=== PATIENT | male | born 1945 | race Caucasian/White ===

== ENCOUNTER → 2016-08-25 | Outpatient (CLI) | payer MEDICARE ==
[~2016-08-25] MED LIST: ASCO-262 PO; ASPI-983 PO; ATOR40TA70 PO; CANA100T PO; CARV12.53 PO; CLOP75TA28 PO; CLOP75TA69 PO; CRV25T PO; CYAN500T2 PO; FENO160T12 PO; FURO-125 PO; INSU100V16 SQ; INSU100V5 SQ; LISI-552 PO; LISI10TA2 PO; LISI40TA PO; MULT-593 PO; NF-ESOM40C PO; OMEG-160 PO; POTA10TA10 PO; RANI150T15 PO; SIMV40TA4 PO
--- OUTSIDE RECORDS SUMMARY | 2016-08-25 13:32 | XMS REPORT | Continuity of Care Document ---
Author Author [facility] Organization [facility] Address Unknown Phone Unavailable Allergies Active Description Code Type Severity Reaction Onset Reported/Identified Relationship to Patient Clinical Status Yes No Known Drug Allergies [id number] Drug Allergy Unknown N/ A 02/07/2015 Medications Problems Date Dx Coded Attending Type Code Diagnosis Diagnosed By 02/08/2015 ADRIANO QUINN MD Ot 250.00 02/08/2015 ADRIANO QUINN MD Ot 401.9 02/08/2015 ADRIANO QUINN MD Ot 428.0 02/08/2015 ADRIANO QUINN MD Ot 443.9 02/08/2015 ADRIANO QUINN MD Ot 496 02/08/2015 ADRIANO QUINN MD Ot 786.50 03/03/2015 ADRIANO QUINN MD Ot 250.00 DIAB [place]ILE[place] WO COMPL, TYPE II OR UNSPEC TY 03/03/2015 ADRIANO QUINN MD Ot 305.1 TOBACCO USE DISORDER 03/03/2015 ADRIANO QUINN MD Ot 401.9 HYPERTENSION NOS 03/03/2015 ADRIANO QUINN MD Ot 414.01 CORONARY ATHEROSCLEROSIS OF [place] CORON 03/03/2015 ADRIANO QUINN MD Ot 428.0 CONGESTIVE HEART FAILURE NOS 03/03/2015 ADRIANO QUINN MD Ot 440.29 OTH ATHEROSCLEROSIS [place] ARTERIES EXTR 03/03/2015 ADRIANO QUINN MD Ot 496 CHR AIRWAY OBSTRUCT NEC 03/03/2015 ADRIANO QUINN MD Ot 786.50 CHEST PAIN NOS 03/03/2015 ADRIANO QUINN MD Ot V45.89 POSTSURGICAL STATES NEC 03/03/2015 ADRIANO QUINN MD Ot V58.67 LONG-TERM (CURRENT) USE OF INSULIN 03/03/2015 ADRIANO QUINN MD Ot V58.69 OTH MED,LT,CURRENT USE 03/12/2015 ADRIANO QUINN MD Ot 250.00 03/12/2015 CHEYENNE QUINTEROS, ADRIANO Crews Ot 401.9 03/12/2015 CHEYENNE QUINTEROS, ADRIANO G Ot 428.0 03/12/2015 CHEYENNE QUINTEROS, ADRIANO Crews Ot 443.9 03/12/2015 CHEYENNE QUINTEROS, ADRIANO G Ot 496 03/12/2015 CHEYENNE QUINTEROS ADRIANO G Ot 786.50 04/17/2015 NWAGWU, ISIDORE O DETECTIVE HOMICIDE SQUAD Ot 250.00 04/17/2015 NWAGWU, ISIDORE O DETECTIVE HOMICIDE SQUAD Ot 305.1 04/17/2015 NWAGWU, ISIDORE O DETECTIVE HOMICIDE SQUAD Ot 401.9 04/17/2015 NWAGWU, ISIDORE O DETECTIVE HOMICIDE SQUAD Ot 428.0 04/17/2015 NWAGWU, ISIDORE O DETECTIVE HOMICIDE SQUAD Ot 443.9 04/17/2015 NWAGWU, ISIDORE O DETECTIVE HOMICIDE SQUAD Ot 496 04/22/2015 CHEYENNE QUINTEROS, ADRIANO Mars Ot 250.00 04/22/2015 CHEYENNE QUINTEROS, ADRIANO Crews Ot 401.9 04/22/2015 CHEYENNE QUINTEROS, ADRIANO Mars Ot 428.0 04/22/2015 CHEYENNE QUINTEROS, ADRIANO Mars Ot 443.9 04/22/2015 CHEYENNE QUINTEROS, ADRIANO G Ot 496 04/22/2015 CHEYENNE QUINTEROS, ADRIANO G Ot 786.50 04/22/2015 NWAGWU, ISIDORE O DETECTIVE HOMICIDE SQUAD Ot 250.00 04/22/2015 NWAGWU, ISIDORE O DETECTIVE HOMICIDE SQUAD Ot 305.1 04/22/2015 NWAGWU, ISIDORE O DETECTIVE HOMICIDE SQUAD Ot 401.9 04/22/2015 NWAGWU, ISIDORE O DETECTIVE HOMICIDE SQUAD Ot 428.0 04/22/2015 NWAGWU, ISIDORE O DETECTIVE HOMICIDE SQUAD Ot 443.9 04/22/2015 NWAGWU, ISIDORE O DETECTIVE HOMICIDE SQUAD Ot 496 04/23/2015 NWAGWU, ISIDORE O DETECTIVE HOMICIDE SQUAD Ot E11.9 TYPE 2 DIABETES MELLITUS WITHOUT COMPLIC 04/23/2015 NWAGWU, ISIDORE O DETECTIVE HOMICIDE SQUAD Ot F17.200 NICOTINE DEPENDENCE, UNSPECIFIED, UNCOMP 04/23/2015 NWAGWU, ISIDORE O DETECTIVE HOMICIDE SQUAD Ot I10 ESSENTIAL (PRIMARY) HYPERTENSION 04/23/2015 NWPABLOWGreer, ISIDORE O DETECTIVE HOMICIDE SQUAD Ot I25.10 ATHSCL HEART DISEASE OF [place] CORONARY 04/23/2015 NWPABLOWGreer, ISIDORE O DETECTIVE HOMICIDE SQUAD Ot I25.2 OLD MYOCARDIAL INFARCTION 04/23/2015 NWPABLOWGreer, ISIDORE O DETECTIVE HOMICIDE SQUAD Ot 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 04/23/2015 NWPABLOWGreer, ISIDORE O DETECTIVE HOMICIDE SQUAD Ot J44.9 CHRONIC OBSTRUCTIVE PULMONARY DISEASE, U 04/23/2015 NWAMELIA, ISIDORE O DETECTIVE HOMICIDE SQUAD Ot Z79.4 HALF-WAY (CURRENT) USE OF INSULIN 08/13/2016 ADRIANO QUINN MD Ot 250.00 DIAB HAILEE WO COMPL, TYPE II OR UNSPEC TY 08/13/2016 ADRIANO QUINN MD Ot 401.9 HYPERTENSION NOS 08/13/2016 ADRIANO QUINN MD Ot 428.0 CONGESTIVE HEART FAILURE NOS 08/13/2016 ADRIANO QUINN MD Ot 443.9 PERIPH VASCULAR DIS NOS 08/13/2016 ADRIANO QUINN MD Ot 496 CHR AIRWAY OBSTRUCT NEC 08/13/2016 ADRIANO QUINN MD Ot 786.50 CHEST PAIN NOS 08/13/2016 NWAMELIA, ISIDORE O DETECTIVE HOMICIDE SQUAD Ot 250.00 DIAB HAILEE WO COMPL, TYPE II OR UNSPEC TY 08/13/2016 NWAMELIA, ISIDORE O DETECTIVE HOMICIDE SQUAD Ot 305.1 TOBACCO USE DISORDER 08/13/2016 NWAMELIA, ISIDORE O DETECTIVE HOMICIDE SQUAD Ot 401.9 HYPERTENSION NOS 08/13/2016 NWPABLOWGreer, ISIDORE O DETECTIVE HOMICIDE SQUAD Ot 428.0 CONGESTIVE HEART FAILURE NOS 08/13/2016 NWPABLOWGreer, ISIDORE O DETECTIVE HOMICIDE SQUAD Ot 443.9 PERIPH VASCULAR DIS NOS 08/13/2016 MONICA, ISIDORE O DETECTIVE HOMICIDE SQUAD Ot 496 CHR AIRWAY OBSTRUCT NEC Procedures Results Encounters ACCT No. Visit Date/Time Discharge Status Pt. Type Provider Facility Loc./Unit Complaint [id number] 04/22/2015 07:12:00 2014 10:44:00 DIS Outpatient MONICA ISIDORE O DETECTIVE HOMICIDE SQUAD [facility] PAD,HTN, DIABETES [id number] 03/28/2015 11:07:00 2014 23:59:59 CLS Outpatient BRAD ANDERSON APRN [facility] PAD, BILATERAL CLAUTICATION OF LOWER LIMB [id number] 03/01/2015 09:52:00 2014 18:12:00 DIS Outpatient ADRIANO QUINN MD [facility] CHF,HTN,PAD [id number] 02/07/2015 09:59:00 2014 23:59:59 CLS Outpatient ADRIANO QUINN MD [facility] CP CHF COPD HTN [id number] 08/26/2016 11:30:00 PEN Preadmit LEIDY ARMIJO MD [facility] COPD,CHEST PAIN SYNDROME,HTN [id number] 08/25/2016 11:00:00 PEN Preadmit LEIDY ARMIJO MD [facility] COPD,CHEST PAIN SYNDROME,HTN
--- NOTE | 2016-08-26 10:12 | ECHOCARDIOGRAPHY REPORT ---
PROCEDURE PHYSICIAN: LEIDY ARMIJO DATE OF PROCEDURE: 08/25/2016 TWO DIMENSIONAL ECHOCARDIOGRAM REPORT PRIMARY PHYSICIAN: OTHER PHYSICIAN: REFERRING PHYSICIAN: Dr. Daisy Marcelo ORDERING PHYSICIAN: INDICATION FOR THE PROCEDURE: Chest pain MEASUREMENTS DERIVED VALUES LV DIAMETER (LAX) NORMALS NORMALS Diastolic 4.6 (3.6-5.2) Eject. Fract. 60% (60%+/-6%) Systolic (2.3-3.9) Diastolic Vol. % Shortening (0.22-0.42) Systolic Vol. Aortic Root IVS THICKNESS Diastolic 1.3 (0.6-1.1) LVPW THICKNESS Diastolic 1.3 (0.6-1.1) LA DIAMETER Systolic 4.2 (2.1-3.7) FINDINGS: 1. Technical quality is good. 2. The left ventricle is normal in size with mild left ventricular hypertrophy noted diffusely. Systolic function appeared to be normal. Estimated ejection fraction 60%. Diastolic dysfunction is suggested by Doppler. 3. The left atrium is mildly dilated. No clot or thrombus were seen within the left atrium. 4. The right atrium and right ventricle are normal in size. No clot or thrombus were seen within the right side. 5. Mitral valve is mildly calcified with moderate mitral regurgitation noted by color Doppler flow. No mitral valve prolapse. No mitral valve stenosis. 6. Aortic valve is trileaflet, no significant aortic stenosis or regurgitation was seen. 7. Tricuspid valve is normal in morphology with mild tricuspid regurgitation noted by color Doppler flow. Doppler across tricuspid valve estimated pulmonary artery pressure of 16+ right atrial pressure. 8. Pulmonic valve is functioning normally. 9. No pericardial effusion. CONCLUSION: 1. Mild left ventricular hypertrophy noted diffusely with normal systolic function. Estimated ejection fraction 60%. Diastolic dysfunction is suggested by Doppler. 2. Mildly dilated left atrium. 3. Moderate mitral regurgitation. Mild tricuspid regurgitation. 4. Estimated pulmonary artery pressure of 25 mmHg. Job ID: [id number] Dictated Date: 08/26/2016 08:24:09 Esthetician/Skin Therapist Date: 08/26/2016 10:07:40 / paddy
== END ==
LOC: CARD 11:17
PROVIDERS: ATTEND Internal Medicine Cardiovascular Disease
DX: I25.10 Atherosclerotic heart disease of native coronary artery without angina pectoris (principal); J44.9 Chronic obstructive pulmonary disease, unspecified; R07.9 Chest pain, unspecified; I73.9 Peripheral vascular disease, unspecified; I11.0 Hypertensive heart disease with heart failure; I51.7 Cardiomegaly; I50.9 Heart failure, unspecified
CPT/HCPCS: 93306

== ENCOUNTER → 2016-08-26 | Outpatient (CLI) | payer MEDICARE ==
[~2016-08-26] MED LIST changes: +CATHETER FLUSH 10 ML SYR IV PRN; +REGADENOSON 0.4 MG/5 ML SYR (LEXISCAN) IV ONE
--- OUTSIDE RECORDS SUMMARY | 2016-08-26 11:18 | XMS REPORT | Continuity of Care Document ---
Author Author [facility] Organization [facility] Address Unknown Phone Unavailable Allergies Active Description Code Type Severity Reaction Onset Reported/Identified Relationship to Patient Clinical Status Yes No Known Drug Allergies [id number] Drug Allergy Unknown N/ A 02/07/2015 Medications [...] QUINN MD Ot 414.01 CORONARY ATHEROSCLEROSIS OF [place] CORON 03/03/2015 ADRIANO QUINN MD Ot 428.0 CONGESTIVE HEART FAILURE NOS 03/03/2015 ADRIANO QUINN MD Ot 440.29 OTH ATHEROSCLEROSIS [place] ARTERIES EXTR 03/03/2015 ADRIANO UQINN MD Ot 496 CHR AIRWAY OBSTRUCT NEC [...] G Ot 786.50 04/17/2015 NWAGWU, ISIDORE O HUMAN FACTORS ADVISOR LEAD Ot 250.00 04/17/2015 NWAGWU, ISIDORE O HUMAN FACTORS ADVISOR LEAD Ot 305.1 04/17/2015 NWAGWU, ISIDORE O HUMAN FACTORS ADVISOR LEAD Ot 401.9 04/17/2015 NWAGWU, ISIDORE O HUMAN FACTORS ADVISOR LEAD Ot 428.0 04/17/2015 NWAGWU, ISIDORE O HUMAN FACTORS ADVISOR LEAD Ot 443.9 04/17/2015 NWAGWU, ISIDORE O HUMAN FACTORS ADVISOR LEAD Ot 496 04/22/2015 CHEYENNE QUINTEROS, ADRIANO Mars Ot 250.00 04/22/2015 CHEYENNE QUINTEROS, ADRIANO Crews Ot 401.9 04/22/2015 CHEYENNE QUINTEROS, ADRIANO Mars Ot 428.0 04/22/2015 CHEYENNE QUINTEROS, ADRIANO Mars Ot 443.9 04/22/2015 CHEYENNE QUINTEROS, ADRIANO G Ot 496 04/22/2015 CHEYENNE QUINTEROS, ADRIANO G Ot 786.50 04/22/2015 NWAGWU, ISIDORE O HUMAN FACTORS ADVISOR LEAD Ot 250.00 04/22/2015 NWAGWU, ISIDORE O HUMAN FACTORS ADVISOR LEAD Ot 305.1 04/22/2015 NWAGWU, ISIDORE O HUMAN FACTORS ADVISOR LEAD Ot 401.9 04/22/2015 NWAGWU, ISIDORE O HUMAN FACTORS ADVISOR LEAD Ot 428.0 04/22/2015 NWAGWU, ISIDORE O HUMAN FACTORS ADVISOR LEAD Ot 443.9 04/22/2015 NWAGWU, ISIDORE O HUMAN FACTORS ADVISOR LEAD Ot 496 04/23/2015 NWAGWU, ISIDORE O HUMAN FACTORS ADVISOR LEAD Ot E11.9 TYPE 2 DIABETES MELLITUS WITHOUT COMPLIC 04/23/2015 NWAGWU, ISIDORE O HUMAN FACTORS ADVISOR LEAD Ot F17.200 NICOTINE DEPENDENCE, UNSPECIFIED, UNCOMP 04/23/2015 NWAGWU, ISIDORE O HUMAN FACTORS ADVISOR LEAD Ot I10 ESSENTIAL (PRIMARY) HYPERTENSION 04/23/2015 NWPABLOWGreer, ISIDORE O HUMAN FACTORS ADVISOR LEAD Ot I25.10 ATHSCL HEART DISEASE OF [place] CORONARY 04/23/2015 NWPABLOWGreer, ISIDORE O HUMAN FACTORS ADVISOR LEAD Ot I25.2 OLD MYOCARDIAL INFARCTION 04/23/2015 NWPABLOWGreer, ISIDORE O HUMAN FACTORS ADVISOR LEAD Ot 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 04/23/2015 NWPABLOWGreer, ISIDORE O HUMAN FACTORS ADVISOR LEAD Ot J44.9 CHRONIC OBSTRUCTIVE PULMONARY DISEASE, U 04/23/2015 NWAMELIA, ISIDORE O HUMAN FACTORS ADVISOR LEAD Ot Z79.4 SENIOR LIVING (CURRENT) USE OF INSULIN 08/13/2016 ADRIANO QUINN [...] CHEST PAIN NOS 08/13/2016 NWAMELIA, ISIDORE O HUMAN FACTORS ADVISOR LEAD Ot 250.00 DIAB HAILEE WO COMPL, TYPE II OR UNSPEC TY 08/13/2016 NWAMELIA, ISIDORE O HUMAN FACTORS ADVISOR LEAD Ot 305.1 TOBACCO USE DISORDER 08/13/2016 NWAMELIA, ISIDORE O HUMAN FACTORS ADVISOR LEAD Ot 401.9 HYPERTENSION NOS 08/13/2016 NWPABLOWGreer, ISIDORE O HUMAN FACTORS ADVISOR LEAD Ot 428.0 CONGESTIVE HEART FAILURE NOS 08/13/2016 NWPABLOWGreer, ISIDORE O HUMAN FACTORS ADVISOR LEAD Ot 443.9 PERIPH VASCULAR DIS NOS 08/13/2016 MONICA, ISIDORE O HUMAN FACTORS ADVISOR LEAD Ot 496 CHR AIRWAY OBSTRUCT NEC Procedures Results Encounters ACCT No. Visit Date/Time Discharge Status Pt. Type Provider Facility Loc./Unit Complaint [id number] 04/22/2015 07:12:00 2014 10:44:00 DIS Outpatient MONICA ISIDORE O HUMAN FACTORS ADVISOR LEAD [facility] PAD,HTN, DIABETES [id number] 03/28/2015 11:07:00 2014 23:59:59 CLS Outpatient BRAD ANDERSON APRN [facility] PAD, BILATERAL CLAUTICATION OF LOWER LIMB [id number] 03/01/2015 09:52:00 2014 18:12:00 DIS Outpatient ADRIANO QUINN MD [facility] CHF,HTN,PAD [id number] 02/07/2015 09:59:00 2014 23:59:59 CLS Outpatient ADRIANO QUINN MD [facility] CP CHF COPD HTN [id number] 08/26/2016 11:30:00 PEN Preadmit LEIDY ARMIJO MD [facility] COPD,CHEST PAIN SYNDROME,HTN [id number] 08/25/2016 11:00:00 PEN Preadmit LEIDY ARMIJO MD [facility] COPD,CHEST PAIN SYNDROME,HTN
== END ==
LOC: CARD 11:14
PROVIDERS: ATTEND Internal Medicine Cardiovascular Disease
DX: I25.10 Atherosclerotic heart disease of native coronary artery without angina pectoris (principal); I11.0 Hypertensive heart disease with heart failure; I50.9 Heart failure, unspecified; I51.7 Cardiomegaly; I73.9 Peripheral vascular disease, unspecified; R07.9 Chest pain, unspecified; J44.9 Chronic obstructive pulmonary disease, unspecified

== ENCOUNTER → 2016-09-02 | Outpatient (CLI) | payer MEDICARE ==
[~2016-09-02] VITALS: Ht 177.8 cm; Wt 93.9 kg
--- OUTSIDE RECORDS SUMMARY | 2016-09-02 11:21 | XMS REPORT | Continuity of Care Document ---
Author Author [facility] Organization [facility] Address Unknown Phone Unavailable Allergies Active Description Code Type Severity Reaction Onset Reported/Identified Relationship to Patient Clinical Status Yes No Known Drug Allergies [id number] Drug Allergy Unknown N/ A 02/07/2015 Medications [...] QUINN MD Ot 414.01 CORONARY ATHEROSCLEROSIS OF [place] CORON 03/03/2015 ADRIANO QUINN MD Ot 428.0 CONGESTIVE HEART FAILURE NOS 03/03/2015 ADRIANO QUINN MD Ot 440.29 OTH ATHEROSCLEROSIS [place] ARTERIES EXTR 03/03/2015 ADRIANO QUINN MD Ot [...] G Ot 786.50 04/17/2015 NWAGWU, ISIDORE O HAM CURER Ot 250.00 04/17/2015 NWAGWU, ISIDORE O HAM CURER Ot 305.1 04/17/2015 NWAGWU, ISIDORE O HAM CURER Ot 401.9 04/17/2015 NWAGWU, ISIDORE O HAM CURER Ot 428.0 04/17/2015 NWAGWU, ISIDORE O HAM CURER Ot 443.9 04/17/2015 NWAGWU, ISIDORE O HAM CURER Ot 496 04/22/2015 CHEYENNE QUINTEROS, ADRIANO Mars Ot 250.00 04/22/2015 CHEYENNE QUINTEROS, ADRIANO Crews Ot 401.9 04/22/2015 CHEYENNE QUINTEROS, ADRIANO Mars Ot 428.0 04/22/2015 CHEYENNE QUINTEROS, ADRIANO Mars Ot 443.9 04/22/2015 CHEYENNE QUINTEROS, ADRIANO G Ot 496 04/22/2015 CHEYENNE QUINTEROS, ADRIANO G Ot 786.50 04/22/2015 NWAGWU, ISIDORE O HAM CURER Ot 250.00 04/22/2015 NWAGWU, ISIDORE O HAM CURER Ot 305.1 04/22/2015 NWAGWU, ISIDORE O HAM CURER Ot 401.9 04/22/2015 NWAGWU, ISIDORE O HAM CURER Ot 428.0 04/22/2015 NWAGWU, ISIDORE O HAM CURER Ot 443.9 04/22/2015 NWAGWU, ISIDORE O HAM CURER Ot 496 04/23/2015 NWAGWU, ISIDORE O HAM CURER Ot E11.9 TYPE 2 DIABETES MELLITUS WITHOUT COMPLIC 04/23/2015 NWAGWU, ISIDORE O HAM CURER Ot F17.200 NICOTINE DEPENDENCE, UNSPECIFIED, UNCOMP 04/23/2015 NWAGWU, ISIDORE O HAM CURER Ot I10 ESSENTIAL (PRIMARY) HYPERTENSION 04/23/2015 NWAGWU, ISIDORE O HAM CURER Ot I25.10 ATHSCL HEART DISEASE OF [place] CORONARY 04/23/2015 NWAGWU, ISIDORE O HAM CURER Ot I25.2 OLD MYOCARDIAL INFARCTION 04/23/2015 NWAGWU, ISIDORE O HAM CURER Ot 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 04/23/2015 NWAGWU, ISIDORE O HAM CURER Ot J44.9 CHRONIC OBSTRUCTIVE PULMONARY DISEASE, U 04/23/2015 NWAGWU, ISIDORE O HAM CURER Ot Z79.4 SNF (CURRENT) USE OF INSULIN 08/13/2016 ADRIANO QUINN [...] MD Ot 786.50 CHEST PAIN NOS 08/13/2016 NWAGWU, ISIDORE O HAM CURER Ot 250.00 DIAB HAILEE WO COMPL, TYPE II OR UNSPEC TY 08/13/2016 NWAGWU, ISIDORE O HAM CURER Ot 305.1 TOBACCO USE DISORDER 08/13/2016 NWAGWU, ISIDORE O HAM CURER Ot 401.9 HYPERTENSION NOS 08/13/2016 NWAGWU, ISIDORE O HAM CURER Ot 428.0 CONGESTIVE HEART FAILURE NOS 08/13/2016 NWAGWU, ISIDORE O HAM CURER Ot 443.9 PERIPH VASCULAR DIS NOS 08/13/2016 NWAGWU, ISIDORE O HAM CURER Ot 496 CHR AIRWAY OBSTRUCT NEC 08/27/2016 LEIDY ARMIJO MD Ot I11.0 HYPERTENSIVE HEART DISEASE WITH HEART FA 08/27/2016 LEIDY ARMIJO MD Ot I25.10 ATHSCL HEART DISEASE OF [place] CORONARY 08/27/2016 LEIDY ARMIJO MD Ot I50.9 HEART FAILURE, UNSPECIFIED 08/27/2016 LEIDY ARMIJO MD Ot I51.7 CARDIOMEGALY 08/27/2016 LEIDY ARMIJO MD Ot I73.9 PERIPHERAL VASCULAR DISEASE, UNSPECIFIED 08/27/2016 LEIDY ARMIJO MD Ot J44.9 CHRONIC OBSTRUCTIVE PULMONARY DISEASE, U 08/27/2016 LEIDY ARMIJO MD Ot R07.9 CHEST PAIN, UNSPECIFIED 08/27/2016 LEIDY ARMIJO MD Ot I11.0 HYPERTENSIVE HEART DISEASE WITH HEART FA 08/27/2016 LEIDY ARMIJO MD Ot I25.10 ATHSCL HEART DISEASE OF [place] CORONARY 08/27/2016 LEIDY ARMIJO MD Ot I50.9 HEART FAILURE, UNSPECIFIED 08/27/2016 LEIDY ARMIJO MD Ot I51.7 CARDIOMEGALY 08/27/2016 LEIDY ARMIJO MD Ot I73.9 PERIPHERAL VASCULAR DISEASE, UNSPECIFIED 08/27/2016 LEIDY ARMIJO MD Ot J44.9 CHRONIC OBSTRUCTIVE PULMONARY DISEASE, U 08/27/2016 LEIDY ARMIJO MD Ot R07.9 CHEST PAIN, UNSPECIFIED Procedures Results Encounters ACCT No. Visit Date/Time Discharge Status Pt. Type Provider Facility Loc./Unit Complaint [id number] 04/22/2015 07:12:00 2014 10:44:00 DIS Outpatient NWAGWGreer ISIDORE O HAM CURER [facility] CATH PAD,HTN, DIABETES [id number] 03/28/2015 11:07:00 2014 23:59:59 CLS Outpatient NWJAMIE CISNEROSDORE O HAM CURER [facility] RAD PAD, BILATERAL CLAUTICATION OF LOWER LIMB [id number] 03/01/2015 09:52:00 2014 18:12:00 DIS Outpatient ADRIANO QUINN MD [facility] CATH CHF,HTN,PAD [id number] 02/07/2015 09:59:00 2014 23:59:59 CLS Outpatient ADRIANO QUINN MD [facility] CARD CP CHF COPD HTN [id number] 08/26/2016 11:14:00 ACT Outpatient LEIDY ARMIJO MD [facility] CARD COPD,CHEST PAIN SYNDROME,HTN [id number] 08/25/2016 11:17:00 ACT Outpatient ALEKSANDER QUINTEROS, LEIDY Galvin [facility] COPD,CHEST PAIN SYNDROME,HTN
[2016-09-02 13:06] VITALS: BP 181/81
[2016-09-02 13:10] VITALS: BP 176/81
--- NOTE | 2016-09-03 08:29 | STRESS TEST ---
PROCEDURE PHYSICIAN: LEIDY ARMIJO DATE OF PROCEDURE: 09/02/2016 LEXISCAN MYOVIEW STRESS TEST REPORT REFERRING PHYSICIAN: Dr. Daisy Marcelo BASELINE HEART RATE: 62 BASELINE BLOOD PRESSURE: 180/80. BASELINE EKG: Sinus rhythm with no ischemic changes. SUMMARY: The patient was injected with 10.22 mCi of technetium 99 Myoview and the resting images were obtained. Then the patient received 0.4 mg of Lexiscan followed by 29.5 mCi of technetium 99 Myoview. Throughout the test, there were no EKG changes. The resting and stress images were reviewed and compared in the short axis, horizontal long axis, and vertical long axis views. Review of the images showed diaphragmatic attenuation with fixed defect at the inferoapical segment. No significant ischemia was noted. SSS is 2, SDS 1, TID value 1.05. On the gated images, the left ventricle appeared to be prominent with diffuse left ventricular hypokinesia. Calculated ejection fraction 35%. CONCLUSION: 1. The patient tolerated Lexiscan well. 2. Fixed defect at the inferoapical segment with diaphragmatic attenuation. No significant ischemia was noted. 3. Prominent left ventricle with diffuse left ventricular hypokinesia. Calculated ejection fraction 35%. Job ID: [id number] Dictated Date: 09/03/2016 08:00:00 Ring Making Machine Operator Date: 09/03/2016 08:21:03 / salena
== END ==
LOC: CARD 11:17
PROVIDERS: ATTEND Internal Medicine Cardiovascular Disease
DX: I25.10 Atherosclerotic heart disease of native coronary artery without angina pectoris (principal); I11.0 Hypertensive heart disease with heart failure; I50.9 Heart failure, unspecified; I51.7 Cardiomegaly; I73.9 Peripheral vascular disease, unspecified; R07.9 Chest pain, unspecified; J44.9 Chronic obstructive pulmonary disease, unspecified
CPT/HCPCS: 78452; 93017

== ENCOUNTER 2016-09-09 08:54 | Day surgery (SDC) | payer MEDICARE ==
[~2016-09-09] VITALS: Ht 177.8 cm; Wt 93.9 kg
[2016-09-09] VITALS (11 sets, daily range): BP systolic 144–184; BP diastolic 72–91
[~2016-09-09 08:54] MED LIST changes: -CATHETER FLUSH 10 ML SYR IV PRN; -CRV25T PO; -LISI40TA PO; -REGADENOSON 0.4 MG/5 ML SYR (LEXISCAN) IV ONE; -SIMV40TA4 PO
--- OUTSIDE RECORDS SUMMARY | 2016-09-09 08:57 | XMS REPORT | Continuity of Care Document ---
Author Author [facility] Organization [facility] Address Unknown Phone Unavailable Allergies Active Description Code Type Severity Reaction Onset Reported/Identified Relationship to Patient Clinical Status Yes No Known Drug Allergies [id number] Drug Allergy Unknown N/ A 02/07/2015 Medications [...] QUINN MD Ot 414.01 CORONARY ATHEROSCLEROSIS OF [place] CORON 03/03/2015 ADRIANO QUINN MD Ot 428.0 CONGESTIVE HEART FAILURE NOS 03/03/2015 ADRIANO QUINN MD Ot 440.29 OTH ATHEROSCLEROSIS [place] ARTERIES EXTR 03/03/2015 ADRIANO QUINN MD Ot [...] G Ot 786.50 04/17/2015 NWAGWU, ISIDORE O BLUEPRINT ASSEMBLER Ot 250.00 04/17/2015 NWAGWU, ISIDORE O BLUEPRINT ASSEMBLER Ot 305.1 04/17/2015 NWAGWU, ISIDORE O BLUEPRINT ASSEMBLER Ot 401.9 04/17/2015 NWAGWU, ISIDORE O BLUEPRINT ASSEMBLER Ot 428.0 04/17/2015 NWAGWU, ISIDORE O BLUEPRINT ASSEMBLER Ot 443.9 04/17/2015 NWAGWU, ISIDORE O BLUEPRINT ASSEMBLER Ot 496 04/22/2015 CHEYENNE QUINTEROS, ADRIANO Mars Ot 250.00 04/22/2015 CHEYENNE QUINTEROS, ADRIANO Crews Ot 401.9 04/22/2015 CHEYENNE QUINTEROS, ADRIANO Mars Ot 428.0 04/22/2015 CHEYENNE QUINTEROS, ADRIANO Mars Ot 443.9 04/22/2015 CHEYENNE QUINTEROS, ADRIANO G Ot 496 04/22/2015 CHEYENNE QUINTEROS, ADRIANO G Ot 786.50 04/22/2015 NWAGWU, ISIDORE O BLUEPRINT ASSEMBLER Ot 250.00 04/22/2015 NWAGWU, ISIDORE O BLUEPRINT ASSEMBLER Ot 305.1 04/22/2015 NWAGWU, ISIDORE O BLUEPRINT ASSEMBLER Ot 401.9 04/22/2015 NWAGWU, ISIDORE O BLUEPRINT ASSEMBLER Ot 428.0 04/22/2015 NWAGWU, ISIDORE O BLUEPRINT ASSEMBLER Ot 443.9 04/22/2015 NWAGWU, ISIDORE O BLUEPRINT ASSEMBLER Ot 496 04/23/2015 NWAGWU, ISIDORE O BLUEPRINT ASSEMBLER Ot E11.9 TYPE 2 DIABETES MELLITUS WITHOUT COMPLIC 04/23/2015 NWAGWU, ISIDORE O BLUEPRINT ASSEMBLER Ot F17.200 NICOTINE DEPENDENCE, UNSPECIFIED, UNCOMP 04/23/2015 NWAGWU, ISIDORE O BLUEPRINT ASSEMBLER Ot I10 ESSENTIAL (PRIMARY) HYPERTENSION 04/23/2015 NWAGWU, ISIDORE O BLUEPRINT ASSEMBLER Ot I25.10 ATHSCL HEART DISEASE OF [place] CORONARY 04/23/2015 NWAGWU, ISIDORE O BLUEPRINT ASSEMBLER Ot I25.2 OLD MYOCARDIAL INFARCTION 04/23/2015 NWAGWU, ISIDORE O BLUEPRINT ASSEMBLER Ot 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 04/23/2015 NWAGWU, ISIDORE O BLUEPRINT ASSEMBLER Ot J44.9 CHRONIC OBSTRUCTIVE PULMONARY DISEASE, U 04/23/2015 NWAGWU, ISIDORE O BLUEPRINT ASSEMBLER Ot Z79.4 [facility]CI (CURRENT) USE OF INSULIN 08/13/2016 ADRIANO QUINN [...] CHEST PAIN NOS 08/13/2016 NWAGWU, ISIDORE O BLUEPRINT ASSEMBLER Ot 250.00 DIAB HAILEE WO COMPL, TYPE II OR UNSPEC TY 08/13/2016 NWAGWU, ISIDORE O BLUEPRINT ASSEMBLER Ot 305.1 TOBACCO USE DISORDER 08/13/2016 NWAGWU, ISIDORE O BLUEPRINT ASSEMBLER Ot 401.9 HYPERTENSION NOS 08/13/2016 NWAGWU, ISIDORE O BLUEPRINT ASSEMBLER Ot 428.0 CONGESTIVE HEART FAILURE NOS 08/13/2016 NWAGWU, ISIDORE O BLUEPRINT ASSEMBLER Ot 443.9 PERIPH VASCULAR DIS NOS 08/13/2016 NWAGWU, ISIDORE O BLUEPRINT ASSEMBLER Ot 496 CHR AIRWAY OBSTRUCT NEC 08/27/2016 LEIDY ARMIJO MD Ot I11.0 HYPERTENSIVE HEART DISEASE WITH HEART FA 08/27/2016 LEIDY ARMIJO MD Ot I25.10 ATHSCL HEART DISEASE OF [place] CORONARY 08/27/2016 LEIDY ARMIJO MD Ot I50.9 [...] MD Ot I25.10 ATHSCL HEART DISEASE OF [place] CORONARY 08/27/2016 LEIDY ARMIJO MD Ot I50.9 HEART FAILURE, UNSPECIFIED 08/27/2016 LEIDY ARMIJO MD Ot I51.7 CARDIOMEGALY 08/27/2016 LEIDY ARMIJO MD Ot I73.9 PERIPHERAL VASCULAR DISEASE, UNSPECIFIED 08/27/2016 LEIDY ARMIJO MD Ot J44.9 CHRONIC OBSTRUCTIVE PULMONARY DISEASE, U 08/27/2016 LEIDY ARMIJO MD Ot R07.9 CHEST PAIN, UNSPECIFIED Procedures Results Encounters ACCT No. Visit Date/Time Discharge Status Pt. Type Provider Facility Loc./Unit Complaint [id number] 04/22/2015 07:12:00 2014 10:44:00 DIS Outpatient NWAGWGreer ISIDORE O [employer] [facility] CATH PAD,HTN, DIABETES [id number] 03/28/2015 11:07:00 2014 23:59:59 CLS Outpatient NWJAMIE CISNEROSDORE O [employer] [facility] RAD PAD, BILATERAL CLAUTICATION OF LOWER LIMB [id number] 03/01/2015 09:52:00 2014 18:12:00 DIS Outpatient ADRIANO QUINN MD [facility] CATH CHF,HTN,PAD [id number] 02/07/2015 09:59:00 2014 23:59:59 CLS Outpatient ADRIANO QUINN MD [facility] CARD CP CHF COPD HTN [id number] 09/02/2016 11:17:00 ACT Outpatient LEIDY ARMIJO MD [facility] CARD I25.10,COPD,CHEST PAIN SYNDROME,CLAUDICATION [id number] 08/26/2016 11:14:00 ACT Outpatient LEIDY ARIMJO MD [facility] COPD,CHEST PAIN SYNDROME,HTN [id number] 08/25/2016 11:17:00 ACT Outpatient LEIDY ARMIJO MD [facility] COPD,CHEST PAIN SYNDROME,HTN
--- OUTSIDE RECORDS SUMMARY | 2016-09-09 08:58 | XMS REPORT | Continuity of Care Document ---
Author Author [facility] Organization [facility] Address Unknown Phone Unavailable Allergies Active Description Code Type Severity Reaction Onset Reported/Identified Relationship to Patient Clinical Status Yes No Known Drug Allergies [id number] Drug Allergy Unknown N/ A 02/07/2015 Medications [...] QUINN MD Ot 414.01 CORONARY ATHEROSCLEROSIS OF [place] CORON 03/03/2015 ADRIANO QUINN MD Ot 428.0 CONGESTIVE HEART FAILURE NOS 03/03/2015 ADRIANO QUINN MD Ot 440.29 OTH ATHEROSCLEROSIS [place] ARTERIES EXTR 03/03/2015 ADRIANO QUINN MD Ot [...] G Ot 786.50 04/17/2015 NWAGWU, ISIDORE O [employer] Ot 250.00 04/17/2015 NWAGWU, ISIDORE O [employer] Ot 305.1 04/17/2015 NWAGWU, ISIDORE O [employer] Ot 401.9 04/17/2015 NWAGWU, ISIDORE O [employer] Ot 428.0 04/17/2015 NWAGWU, ISIDORE O [employer] Ot 443.9 04/17/2015 NWAGWU, ISIDORE O [employer] Ot 496 04/22/2015 [place] QUINTEROS, ADRIANO Mars Ot 250.00 04/22/2015 [place] QUINTEROS, ADRIANO Crews Ot 401.9 04/22/2015 [place] QUINTEROS, ADRIANO Mars Ot 428.0 04/22/2015 [place] QUINTEROS, ADRIANO Mars Ot 443.9 04/22/2015 [place] QUINTEROS, ADRIANO G Ot 496 04/22/2015 [place] QUINTEROS, ADRIANO G Ot 786.50 04/22/2015 NWAGWU, ISIDORE O [employer] Ot 250.00 04/22/2015 NWAGWU, ISIDORE O [employer] Ot 305.1 04/22/2015 NWAGWU, ISIDORE O [employer] Ot 401.9 04/22/2015 NWAGWU, ISIDORE O [employer] Ot 428.0 04/22/2015 NWAGWU, ISIDORE O [employer] Ot 443.9 04/22/2015 NWAGWU, ISIDORE O [employer] Ot 496 04/23/2015 NWAGWU, ISIDORE O [employer] Ot E11.9 TYPE 2 DIABETES MELLITUS WITHOUT COMPLIC 04/23/2015 NWAGWU, ISIDORE O [employer] Ot F17.200 NICOTINE DEPENDENCE, UNSPECIFIED, UNCOMP 04/23/2015 NWAGWU, ISIDORE O [employer] Ot I10 ESSENTIAL (PRIMARY) HYPERTENSION 04/23/2015 NWAGWU, ISIDORE O [employer] Ot I25.10 ATHSCL HEART DISEASE OF [place] CORONARY 04/23/2015 NWAGWU, ISIDORE O [employer] Ot I25.2 OLD MYOCARDIAL INFARCTION 04/23/2015 NWAGWU, ISIDORE O [employer] Ot 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0 CONGESTIVE HEART FAILURE NOS 08/13/2016 NWAGWU, ISIDORE O [employer] Ot 443.9 PERIPH VASCULAR DIS NOS 08/13/2016 NWAGWU, ISIDORE O [employer] Ot 496 CHR AIRWAY OBSTRUCT NEC 08/27/2016 LEIDY ARMIJO MD Ot I11.0 HYPERTENSIVE HEART DISEASE WITH HEART FA 08/27/2016 LEIDY ARMIJO MD Ot I25.10 ATHSCL HEART DISEASE OF [place] CORONARY 08/27/2016 LEIDY ARMIJO MD Ot I50.9 [...] MD Ot I25.10 ATHSCL HEART DISEASE OF [place] CORONARY 08/27/2016 LEIDY ARMIJO MD Ot I50.9 HEART FAILURE, UNSPECIFIED 08/27/2016 LEIDY ARMIJO MD Ot I51.7 CARDIOMEGALY 08/27/2016 LEIDY ARMIJO MD Ot I73.9 PERIPHERAL VASCULAR DISEASE, UNSPECIFIED 08/27/2016 LEIDY ARMIJO MD Ot J44.9 CHRONIC OBSTRUCTIVE PULMONARY DISEASE, U 08/27/2016 LEIDY ARMIJO MD Ot R07.9 CHEST PAIN, UNSPECIFIED Procedures Results Encounters ACCT No. Visit Date/Time Discharge Status Pt. Type Provider Facility Loc./Unit Complaint [id number] 04/22/2015 07:12:00 2014 10:44:00 DIS Outpatient NWAGWGreer ISIDORE O [employer] [facility] CATH PAD,HTN, DIABETES [id number] 03/28/2015 11:07:00 2014 23:59:59 CLS Outpatient NWJAMIE CISNEROSDORE O [employer] [facility] RAD PAD, BILATERAL CLAUTICATION OF LOWER LIMB [id number] 03/01/2015 09:52:00 2014 18:12:00 DIS Outpatient ADRIANO QUINN MD [facility] CATH CHF,HTN,PAD [id number] 02/07/2015 09:59:00 2014 23:59:59 CLS Outpatient ADRIANO QUINN MD [facility] CARD CP CHF COPD HTN [id number] 09/02/2016 11:17:00 ACT Outpatient LEIDY ARMIJO MD [facility] CARD I25.10,COPD,CHEST PAIN SYNDROME,CLAUDICATION [id number] 08/26/2016 11:14:00 ACT Outpatient LEIDY ARMIJO MD [facility] COPD,CHEST PAIN SYNDROME,HTN [id number] 08/25/2016 11:17:00 ACT Outpatient LEIDY ARMIJO MD [facility] COPD,CHEST PAIN SYNDROME,HTN
[2016-09-09] MEDS ORDERED: HEParin (CATH LAB) 2,000 ML IV ONE (09:15)
[2016-09-09] MEDS ORDERED: NS IV 1000 ML 1,000 ML ONE ×2 (09:15→13:13)
[2016-09-09] MEDS ORDERED: LIDOCAINE 1% INJ 20 ML (XYLOCAINE) VIAL ONE (09:15)
[2016-09-09] MEDS ORDERED: NS IV 1000 ML 1,000 ML IV SCH ×2 (09:26→10:00)
[2016-09-09 09:47] LABS: MEAN PLATELET VOLUME 10.8 FL (7.4-10.4); RED BLOOD COUNT 5.15 10^6/uL (4.35-5.85); RED CELL DISTRIBUTION WIDTH 13.7 % (10.0-14.5); WHITE BLOOD COUNT 11.7 10^3/uL (4.3-11.0)
[2016-09-09 09:59] LABS: PROTHROMBIN TIME PATIENT 12.4 SEC (12.2-14.7)
[2016-09-09] MEDS ORDERED: FLU TRIvalent (5 YOA+) 2016-17 (AFLURIA) 0.5 ML IM ONE (10:00)
[2016-09-09 10:07] LABS: ALBUMIN 4.3 G/DL (3.2-4.5); BILIRUBIN,TOTAL 0.3 MG/DL (0.1-1.0); CREATININE SERUM 1.58 MG/DL (0.60-1.30); POTASSIUM 3.3 MMOL/L (3.6-5.0); TOTAL PROTEIN 7.8 G/DL (6.4-8.2)
--- NOTE | 2016-09-09 10:11 | Diagnostic Imaging Report ---
INDICATION: Cardiac disease FINDINGS: The heart size and configuration normal. No vascular congestion. No edema, pneumonia,, effusion or pneumothorax. IMPRESSION: No acute appearing abnormality. Dictated by: Dictated on workstation # [id number]
[2016-09-09] MEDS ORDERED: NS IV 1000 ML 0 ML ONE (10:15)
[2016-09-09] MEDS ORDERED: MIDAZOLAM 5 MG/5 ML (VERSED) VIAL ONE (12:13)
[2016-09-09] MEDS ORDERED: fentaNYL INJECTION 100 MCG/2 ML AMP ONE (12:13)
--- NOTE | 2016-09-09 12:29 | Cardiac Procedure Note-CS/ASA ---
Pre-Procedure Note Pre-Op Procedure Note H&P Reviewed The H&P was reviewed, patient examined and no changes noted. Date H&P Reviewed: Sep 09, 2016 Time H&P Reviewed: 12:29 Conscious Sedation Pre-Proced Time Reviewed: :29 ASA Class: 3 Airway Mallampati Classification: ([place] appropriate class) I. II. III, IV Lungs Heart ASA score ASA 1: a normal healthy patient ASA 2: a patient with a mild systemic disease (mid diabetes, controlled hypertension, obesity x ASA 3: a patient with a severe systemic disease that limits activity (angina , COPD, prior Myocardial infarction) ASA 4: a patient with an incapacitating disease that is a constant threat to life (CHF, renal failure) ASA 5: a moribund patient not expected to survive 24 hrs. (ruptured aneurysm) ASA 6: a declared brain patient whose organs are being harvested. For emergent operations, add the letter E after the classification Grade 3 Sedation Plan: Analgesia, Amnesia, Plan communicated to team members, Discussed options with patient/fam, Discussed risks with patient/fam Note The patient is an appropriate candidate to undergo the planned procedure, sedation, and anesthesia. The patient immediately re-assessed prior to indication. LEIDY ARMIJO MD Sep 09, 2016 12:29
[2016-09-09] MEDS ORDERED: HEParin 1000 UNIT/ML (10ML VIAL) FOR BOLUS ONE (13:07)
[2016-09-09] MEDS ORDERED: NITROGLYCERIN DRIP 25 MG/D5W 250 ML IV ONE (13:21)
[2016-09-09] MEDS ORDERED: PATIENT MAY USE OWN MEDS, ALL PO SCH (14:00)
[2016-09-09] MEDS ORDERED: ASPIRIN 325 MG (5 GR) TABLET ONE (14:03)
[2016-09-09] MEDS ORDERED: CLOPIDOGREL 300 MG (PLAVIX) TABLET PO ONE (14:03)
[2016-09-09] MEDS ORDERED: SIMV40TA4 PO (14:37)
[2016-09-09] MEDS ORDERED: CRV25T PO (14:37)
[2016-09-09] MEDS ORDERED: NF-ESOM40C PO (14:37)
[2016-09-09] MEDS ORDERED: LISI40TA PO (14:37)
[2016-09-09] MEDS: NS IV 1000 ML 1,000 ML IV SCH ×2 (14:49→23:54)
[2016-09-09] MEDS ORDERED: NON-FORMULARY MEDICATION 1 EA EA (Esomeprazole Magnesium (Nexium) 40 MG) PO PRN (15:15)
[2016-09-09] MEDS ORDERED: PANTOPRAZOLE 40 MG (PROTONIX) TAB PO PRN (15:30)
[2016-09-09] MEDS: inSUlin ASPART (NovoLOG) 1 UNIT/0.01 ML (CHARGE PER UNIT) SQ SCH (18:52)
[2016-09-09] MEDS ORDERED: CARVEDILOL 12.5 MG (COREG) TABLET PO SCH (21:00)
[2016-09-09] MEDS ORDERED: inSUlin DETERMIR 1 UNIT/0.01 ML (LEVEMIR) CHARGE PER UNIT SQ SCH (21:00)
[2016-09-09] MEDS ORDERED: inSUlin DETERMIR 1000 UNITS/10 ML VIAL (LEVEMIR) SQ SCH (21:00)
[2016-09-09] MEDS ORDERED: NON-FORMULARY MEDICATION 1 EA EA (Carvedilol (Coreg) 25 MG) PO SCH (21:00)
[2016-09-09] MEDS ORDERED: SIMvastatin 40 MG (ZOCOR) TAB PO SCH (21:00)
[2016-09-10 04:00] VITALS: BP 134/68
[2016-09-10 05:15] LABS: RED BLOOD COUNT 4.18 10^6/uL (4.35-5.85); RED CELL DISTRIBUTION WIDTH 13.4 % (10.0-14.5); WHITE BLOOD COUNT 8.4 10^3/uL (4.3-11.0)
[2016-09-10 05:35] LABS: ANION GAP 10 MMOL/L (5-14); BLOOD UREA NITROGEN 17 MG/DL (7-18); BUN/CREATININE RATIO 16; CALCIUM 8.4 MG/DL (8.5-10.1); CARBON DIOXIDE 21 MMOL/L (21-32); CHLORIDE 108 MMOL/L (98-107); CREATININE SERUM 1.09 MG/DL (0.60-1.30); GFR ESTIMATED > 60; GLUCOSE 104 MG/DL (70-105); POTASSIUM 3.9 MMOL/L (3.6-5.0); SODIUM 139 MMOL/L (135-145)
[2016-09-10] MEDS ORDERED: OMEGA 3 (FISH OIL) 1000 MG CAP PO SCH (07:00)
[2016-09-10] MEDS ORDERED: MULTIVIT W/MINERALS TAB (THERAGRAN M) PO SCH (07:00)
[2016-09-10] MEDS ORDERED: CLOP75TA69 PO (07:33)
--- NOTE | 2016-09-10 07:34 | Discharge Inst-Post CATH ---
Discharge Inst-CATH Post Cardiac Cath D/C Inst Follow Up/Plan Appointment with Dr Eid's office in 2-4 weeks CARDIAC CATH DISCHARGE INSTRUCTIONS *Hold Metformin for 48 hours post heart cath. ACTIVITY * Go Home directly and rest. * Limit activity of the leg (or wrist if it was used) for 7 days including aerobics, swimming, jogging, bicycling, etc. * Restrict stair-climbing for 7 days if possible, if not, climb up with your non -cath leg, then bring together on the same step. * Avoid lifting, pushing, pulling or excessive movement of the affected extremity for 7 days. * Customary sexual activity may be resumed after 2 days-use caution not to use a position that strains or causes pain to the affected extremity. * No driving for 24 hours. * NO SMOKING. * Avoid straining for bowel movements for 7 days. * Gentle walking on level ground is allowed. * Returning to work will depend on the type of procedure and the results. Your doctor will discuss this with you. CALL YOUR DOCTOR FOR ANY OF THE FOLLOWING: *If bleeding from the puncture site occurs- Apply gentle pressure to site with clean cloth and call your doctor or EMS. * If a knot or lump forms under the skin, increases in size, or causes pain. * If bruising appears to be worsening or moving further down your leg instead of disappearing. * Temperature above 101 F. CARE OF YOUR GROIN INCISION; * Bruising or purple discoloration of the skin near the puncture site is common. * You may shower only, no bathtub bathing for 5 days. Be careful to avoid slipping as your leg may feel stiff. * If a closure device was used on your femoral artery, please see the attached guide regarding care of the device and your leg. * REMOVE the dressing from your groin the next day after your procedure in the shower. CARE OF YOUR WRIST INCISION; * Bruising or purple discoloration of the skin near the puncture site is common. * You may shower. * DO NOT submerge wrist. * Remove dressing in 24 hours. LEIDY EID MD Sep 10, 2016 07:34
--- NOTE | 2016-09-10 07:37 | Cardiology Progress Note ---
Subjective Subjective/Events-last exam Patient is in bed, feeling well asking to go home Review of Systems General: No Chills, No Night Sweats, No Fatigue, No Malaise, No Appetite, No Other HEENT: No Head Aches, No Visual Changes, No Eye Pain, No Ear Pain, No Dysphasia , No Sinus Congestion, No Post Nasal Drip, No Sore Throat, No Other Pulmonary: No Dyspnea, No Cough, No Pleuritic Chest Pain, No Other Cardiovascular: No: Chest Pain, Edema, Lt Headedness, Orthopnea, Other, Palpitations, Paroxysmal Noc. Dyspnea Objective-Cardiology Exam Last Set of Vital Signs Vital Signs 09/10/16 04:00 Temp 98.7 Pulse 94 Resp 14 B/P 134/68 Pulse Ox 97 O2 Delivery Room Air Capillary Refill : Less Than 3 Seconds General: Alert, Oriented X3, Cooperative HEENT: Atraumatic, PERRLA Neck: Supple, No JVD, No Thyromegaly Lungs: Clear to Auscultation, Normal Air Movement Heart: Regular Rate, Normal S1, Normal S2, No Murmurs Abdomen: Normal Bowel Sounds, Soft, No Tenderness, No Hepatosplenomegaly, No Masses Extremities: No Clubbing, No Cyanosis, No Edema, Normal Pulses, No Tenderness/ Swelling Skin: No Rashes, No Breakdown, No Significant Lesion Neuro: Normal Gait, Normal Speech, Strength at 5/5 X4 Ext, Normal Tone, Sensation Intact Psych/Mental Status: Mental Status NL, Mood NL Results Lab Laboratory Tests 09/09/16 09:34 09/10/16 04:56 A/P-Cardiology Admission Diagnosis peripheral arterial disease Coronary artery disease Hypertension Hyperlipidemia Tobaccoism Diabetes mellitus Assessment/Plan PAD sp angioplasty, groin is healed well CAD, medical therapy, please see fully dictated report Subclavian stent HTN HLD Tobaccoism, educated on smoking cessation. LEIDY ARMIJO MD Sep 10, 2016 07:37
[2016-09-10] MEDS: inSUlin ASPART (NovoLOG) 1 UNIT/0.01 ML (CHARGE PER UNIT) SQ SCH (07:38)
[2016-09-10] MEDS ORDERED: CLOPIDOGREL 75 MG (PLAVIX) TABLET PO NR (07:45)
[2016-09-10 08:00] VITALS: BP 134/72
[2016-09-10] MEDS ORDERED: ASPIRIN E.C. 81 MG (ECOTRIN) TAB PO SCH (09:00)
[2016-09-10] MEDS ORDERED: NON-FORMULARY MEDICATION 1 EA EA (Lisinopril 40 MG) PO SCH (09:00)
[2016-09-10] MEDS ORDERED: CYANOCOBALAMIN 500 MCG TAB (VITAMIN B-12) PO SCH (09:00)
[2016-09-10] MEDS ORDERED: lisINopril 20 MG (ZESTRIL) TAB PO SCH (09:00)
[2016-09-10] MEDS ORDERED: MULTIVITAMIN WITH MINERALS PO SCH (09:00)
--- NOTE | 2016-09-10 09:02 | DISCHARGE SUMMARY ---
PROCEDURE PHYSICIAN: LEIDY ARMIJO DATE OF PROCEDURE: 09/09/2016 REFERRING PHYSICIAN: Dr. Daisy Marcelo. BRIEF HISTORY: Mr. Solano is a 70-year-old gentleman with extensive peripheral arterial disease. He had stenting in the lower extremities, multiple interventions in the past. He has lower extremity pain. JOSELITO is abnormal more pronounced on the right. The patient had an abnormal stress test. He had history of subclavian stent and renal insufficiency. I decided to proceed with coronary angiogram and peripheral angiogram, possible angioplasty with limiting exposure to the contrast. PROCEDURE NOTE: After explaining the procedure to the patient, all pros and cons were explained. All questions were answered. The patient signed a consent, then he was placed on the cardiac catheterization laboratory. Left groin was prepped in a sterile fashion. Local anesthesia applied to the left groin. 6-Congolese sheath was placed in the left femoral artery. Combination of right and left Burton catheter were used to access the right and left coronary system. Multiple views were obtained. I used the Burton right catheter to crossover without success. Attempted to crossover with a pigtail catheter without success and then I was successful with a rim catheter. I crossed over from the left groin to the right leg, advanced the rim catheter and did runoff of the right lower extremity. Then I exchanged the rim catheter into long straight catheter. I advanced it to the right SFA then advanced it down to the popliteal artery and performed multiple angiograms and runoff of the or tibioperoneal trunk and the popliteal artery. At that time, pullback was done with straight across the SFA. There was about 30 mmHg across the mid SFA lesion. The patient has severe stenosis. Subsequently I advanced a Storq wire, removed the straight catheter and exchanged the sheath into a 55 mL 6-Congolese sheath. The patient was given 5000 units of heparin. Then I used [place] 6 x 100 balloon multiple inflations in the SFA. There was an area of residual stenosis with recoiling. I used Lutonix 6.0 x 100 mm drug coated balloon, inflated in the mid SFA. Excellent result was noted. Then the sheath was pulled to the common iliac artery on the left and runoff was done. Then I exchanged the sheath into short 6-[place] sheath and did 2 images, runoff to the left lower extremity. Then I did a DSA image to below the knee of the left lower extremity. Then the sheath was removed. Mynx device deployed. Hemostasis achieved. FINDINGS: HEMODYNAMICS: Aortic pressure 147/61, mean of 88. ANATOMY: 1. LEFT MAIN CORONARY ARTERY: The left main coronary artery is bifurcating to left anterior descending and left circumflex artery with no obstructive disease. 2. LEFT ANTERIOR DESCENDING ARTERY: The left anterior descending artery is moderate in size with mild irregularity with no obstructive disease. 3. LEFT CIRCUMFLEX ARTERY: The left circumflex artery has 50 to 60% stenosis proximally, nonobstructive disease. 4. RIGHT CORONARY ARTERY: The right coronary artery is a large dominant artery, totally occluded proximally. Reconstructed by collateral from the left and right. The patient is known to have total infarction. I recommend evaluating viability prior to an attempt to intervene on the right coronary artery. 5. LEFT LOWER EXTREMITY RUNOFF: Left lower extremity runoff was done at multiple segments with the sheath. There is a patent stent in the mid SFA with mild disease distally. The anterior tibial artery has 3 stents and appeared to be occluded with moderate disease in the posterior tibial and peroneal artery. 6. RIGHT LOWER EXTREMITY: Right lower extremity angiogram showed severe stenosis in the mid SFA with significant pressure gradient. Successful balloon angioplasty, then using a drug coated balloon Lutonix 6.0 x 100 with excellent results. Below the knee there is multiple areas of significant stenosis in the posterior tibial and peroneal artery. Angiogram post intervention showed excellent flow. 7. ABDOMINAL AORTOGRAM: Abdominal aortogram was done in AP position. It showed small abdominal aortic aneurysm infrarenally just about the bifurcation with bilateral disease. 8. LEFT LOWER RUNOFF: Left lower runoff through the sheath in the common iliac artery showed small aneurysmal dilatation in the common iliac artery followed by stent that appear patent in the common femoral artery. CONCLUSION: 1. Total occlusion of the right coronary artery, large dominant artery, getting collaterals from the left system and from the right system. The area of the inferior wall appeared to be totally infarction on the stress test with ejection fraction 35%. I would recommend evaluating viability study prior to attempting high risk intervention on the right coronary artery. 2. Severe peripheral arterial disease with multiple areas of severe stenosis in the right superficial femoral artery. Successful balloon angioplasty then drug coated balloon to the SFA, using Lutonix 6.0 x 100 with good results. Multiple areas of significant stenosis in the posterior tibial and peroneal artery, moderate disease right tibial artery. Medical therapy is recommended at this point. 3. Small aneurysmal dilatation at the right common iliac artery followed by stent. 4. Patent stent with mild in-stent restenosis in the mid SFA on the left side. Total occlusion of the anterior tibial artery with multiple stents in the proximal portion of the anterior tibial artery. Moderate to severe disease in the posterior tibial artery and peroneal artery. 5. The patient had left subclavian stent that was noted during fluoroscopy on the thoracic aorta. No angiogram was done. DISCUSSION AND RECOMMENDATION: I will continue maximizing medical therapy. Consider repeating JOSELITO. Close monitoring to the left lower extremity and attempt for intervention if needed. Regarding the right coronary artery, after evaluating viability and maximizing medical therapy, if patient requires, we can consider high-risk intervention with probably referral to a tertiary care center. FINAL DIAGNOSES: 1. Coronary artery disease. 2. Peripheral arterial disease. 3. Hypertension. 4. Hyperlipidemia. Job ID: [id number] Dictated Date: 09/09/2016 14:14:19 Microbiology Supervisor Date: 09/10/2016 08:59:12/salena
== END 2016-09-10 09:00 | disposition home or self-care (01) ==
LOC: CATH 08:54 → CSD 14:25 → ICU 19:44 → CATH 09-10 09:00
PROVIDERS: ATTEND Internal Medicine Cardiovascular Disease
DX: R94.39 Abnormal result of other cardiovascular function study (principal); I70.213 Atherosclerosis of native arteries of extremities with intermittent claudication, bilateral legs; I70.92 Chronic total occlusion of artery of the extremities; I25.10 Atherosclerotic heart disease of native coronary artery without angina pectoris; T82.856A Stenosis of peripheral vascular stent, initial encounter; I25.82 Chronic total occlusion of coronary artery; N18.9 Chronic kidney disease, unspecified; I71.4 Abdominal aortic aneurysm, without rupture; I12.9 Hypertensive chronic kidney disease with stage 1 through stage 4 chronic kidney disease, or unspecified chronic kidney disease; E11.22 Type 2 diabetes mellitus with diabetic chronic kidney disease; I50.9 Heart failure, unspecified; J44.9 Chronic obstructive pulmonary disease, unspecified; Z79.4 Long term (current) use of insulin; Z79.899 Other long term (current) drug therapy; Z72.0 Tobacco use
CPT/HCPCS: 36247; 36415; 37224; 71010; 75625; 75716; 75774; 80048; 80053; 82962; 85027; 85347; 85610; 85730; 87081; 93458

== ENCOUNTER → 2016-12-01 | Outpatient (CLI) | payer MEDICARE ==
[~2016-12-01] MED LIST changes: +CATHETER FLUSH 10 ML SYR IV PRN; +CRV25T PO; +LISI40TA PO; +SIMV40TA4 PO
== END ==
LOC: CARD 12:42
PROVIDERS: ATTEND Physician Assistant
DX: I25.10 Atherosclerotic heart disease of native coronary artery without angina pectoris (principal); I10 Essential (primary) hypertension; I77.1 Stricture of artery; Z72.0 Tobacco use
CPT/HCPCS: 78452; 93017

== ENCOUNTER 2017-03-29 06:50 | Day surgery (SDC) | payer MEDICARE ==
[~2017-03-29] VITALS: Ht 177.8 cm; Wt 95.7 kg
[2017-03-29] VITALS (13 sets, daily range): BP systolic 149–184; BP diastolic 64–101
[~2017-03-29 06:50] MED LIST changes: -CATHETER FLUSH 10 ML SYR IV PRN; +HEParin (CATH LAB) 2,000 ML IV ONE; +NS IV 1000 ML 1,000 ML ONE
[2017-03-29] MEDS: NS IV 1000 ML 1,000 ML IV SCH ×4 (07:24→20:05)
--- NOTE | 2017-03-29 07:27 | Diagnostic Imaging Report ---
INDICATION: Precatheterization evaluation prior to possible coronary artery angioplasty and stent placement. 0717 hours Portable upright view of the chest is obtained with comparison made to study of 09/09/2016. Heart size and pulmonary vascularity are within normal limits. There is no pneumothorax or consolidation. No adverse change seen. IMPRESSION: No acute abnormality or adverse change is seen. Dictated by: Dictated on workstation # [id number]
[2017-03-29 07:33] LABS: MEAN PLATELET VOLUME 10.3 FL (7.4-10.4); RED BLOOD COUNT 4.57 10^6/uL (4.35-5.85); RED CELL DISTRIBUTION WIDTH 13.4 % (10.0-14.5); WHITE BLOOD COUNT 9.8 10^3/uL (4.3-11.0)
[2017-03-29 07:33] LABS: BILIRUBIN,URINE NEGATIVE (NEGATIVE); KETONES,URINE NEGATIVE (NEGATIVE); LEUKOCYTE ESTERASE ,URINE NEGATIVE (NEGATIVE); NITRITE,URINE NEGATIVE (NEGATIVE); PH,URINE 5 (5-9); PROTEIN,URINE 3+ (NEGATIVE); UROBILINOGEN,URINE NORMAL (NORMAL)
[2017-03-29 07:45] LABS: SQUAMOUS EPITHELIAL CELL,UR RARE /HPF
[2017-03-29 07:47] LABS: INR 0.9 (0.8-1.4); PROTHROMBIN TIME PATIENT 12.6 SEC (12.2-14.7)
[2017-03-29 07:57] LABS: ALBUMIN 4.1 GM/DL (3.2-4.5); BILIRUBIN,TOTAL 0.4 MG/DL (0.1-1.0); CREATININE SERUM 1.61 MG/DL (0.60-1.30); POTASSIUM 4.3 MMOL/L (3.6-5.0); TOTAL PROTEIN 7.6 GM/DL (6.4-8.2)
--- NOTE | 2017-03-29 08:02 | Cardiac Procedure Note-CS/ASA ---
Pre-Procedure Note Pre-Op Procedure Note H&P Reviewed The H&P was reviewed, patient examined and no changes noted. Date H&P Reviewed: Mar 29, 2017 Time H&P Reviewed: 08:02 Conscious Sedation Pre-Proced Time Reviewed: 08:02 ASA Class: 3 Airway Mallampati Classification: ([place] appropriate class) I. II. III, IV Lungs Heart ASA score ASA 1: a normal healthy patient ASA 2: a patient with a mild systemic disease (mid diabetes, controlled hypertension, obesity x ASA 3: a patient with a severe systemic disease that limits activity (angina , COPD, prior Myocardial infarction) ASA 4: a patient with an incapacitating disease that is a constant threat to life (CHF, renal failure) ASA 5: a moribund patient not expected to survive 24 hrs. (ruptured aneurysm) ASA 6: a declared brain patient whose organs are being harvested. For emergent operations, add the letter E after the classification Grade 3 Sedation Plan: Analgesia, Amnesia, Plan communicated to team members, Discussed options with patient/fam, Discussed risks with patient/fam Note The patient is an appropriate candidate to undergo the planned procedure, sedation, and anesthesia. The patient immediately re-assessed prior to indication. LEIDY ARMIJO MD Mar 29, 2017 08:02
[2017-03-29] MEDS ORDERED: INSU100V16 SQ (09:38)
[2017-03-29] MEDS ORDERED: MIDAZOLAM 5 MG/5 ML (VERSED) VIAL ONE (09:39)
[2017-03-29] MEDS ORDERED: fentaNYL INJECTION 100 MCG/2 ML AMP ONE (09:39)
[2017-03-29] MEDS ORDERED: NITROGLYCERIN DRIP 25 MG/D5W 250 ML IV ONE (09:39)
[2017-03-29] MEDS ORDERED: HEParin 1000 UNIT/ML (10ML VIAL) FOR BOLUS ONE (09:39)
[2017-03-29] MEDS ORDERED: AMLO5TAB2 PO (09:39)
[2017-03-29] MEDS ORDERED: INSU100V5 SQ (09:39)
[2017-03-29] MEDS ORDERED: CLOPIDOGREL 300 MG (PLAVIX) TABLET PO ONE (11:23)
[2017-03-29] MEDS ORDERED: ASPIRIN 325 MG (5 GR) TABLET ONE (11:23)
[2017-03-29] MEDS ORDERED: PATIENT MAY USE OWN MEDS, ALL PO SCH (11:30)
[2017-03-29] MEDS ORDERED: NON-FORMULARY MEDICATION 1 EA EA (Esomeprazole Magnesium (Nexium) 40 MG) PO PRN (11:30)
--- NOTE | 2017-03-29 11:43 | Cardiac Cath Report ---
Cardiac Cath Report Physician (s)/[employer] Worker (s) Physician LEIDY ARMIJO MD Pre-Procedure Diagnosis Pre-Procedure Diagnosis: peripheral artery disease, claudication, coronary artery disease Post-Procedure Note Procedure Start Date: Mar 29, 2017 Procedure Start Time: 10:30 Name of Procedure: left heart catheterization Abdominal aortogram Bilateral lower excellent runoff Balloon angioplasty and stent deployment to the right SFA Third order Findings/Procedure Note PROCEDURE NOTE: After explaining the procedure to the patient, all pros and cons were explained, all questions were answered. The patient signed the consent and then he was placed on the cardiac catheterization laboratory. The patient was placed on the cardiac catheterization laboratory. Groin was prepped SL fashion local anesthesia was used. sheath was placed in the left femoral artery, runoff of the left lower extremity was done through the sheath then the pigtail catheter advanced to the abdominal aorta and abdominal aortogram was done and evaluating the bifurcation , lung stroke wire was used to cross I was unable to advance it in the iliac stent subsequently I advanced a straight catheter to the proximal right iliac and runoff of the right lower except he was made, I used curved Glidewire and advanced it to the mid SFA and I was able to advance the straight catheter to the mid SFA then I exchanged the wire into a long stork wire put it in the distal SFA removed the catheter and just the sheath and prior to advancement of 6 [place] 45 centimeter sheath the end of the wire was contaminated I cut the wire at the middle and used it to exchange the sheath. Then removed the wire and the sheath was placed in the proximal right SFA. I used him and 18 wire advance it to the peroneal artery, patient had severe stenosis in the mid SFA pre-dilatated in with our [place] 6 x 150 balloon, postdilatation there was a dissection the mid SFA. I removed the balloon and placed Sepera 5.5 x 150 mm and postdilated with the same 6.0 balloon with excellent results. No residual stenosis, the popliteal artery has moderate to severe stenosis at the bifurcation, moderate disease distally which was treated conservatively. At that point I exchanged the long sheath into short 6 [place] sheath and due to the fact that he is limited amount of contrast I decided to proceed with coronary angiogram. I used Burton right and left catheter to evaluate the right and left coronary minimal contrast used, total contrast used for the coronary was 10 ml, that Burton right catheter was prolapsed into the left ventricular cavity. Pressure was measured. Pullback LV to aorta was done. At the end of the procedure sheath was removed Device deployed hemostasis achieved. Patient received 6000 units of heparin prior to the procedure. FINDINGS: Hemodynamics LV 132/24 end-diastolic pressure of 24 Aorta 155/65 mean of 91 ANATOMY: Left Main is bifurcating to left anterior descending and left circumflex artery with no obstructive disease Left Anterior Descending is moderate in size slightly tortuous with mild disease , structure disease Left Circumflex is moderate in size with 50 percent stenosis proximally. Nonobstructive disease Right Coronory Artery his totally occluded dominant artery receiving collaterals from the left and through the right system. LV Gram was not done Aorta abdominal aortogram was done to evaluate the bifurcation, arthroscopic disease was noted. Nonobstructive disease. No aneurysm. Left lower extremity runoff, done through the sheath, mild to moderate disease in the SFA. More significant disease below the trifurcation. With brisk flow down to the foot. Right lower except he ran out of, severe restenosis in the mid SFA, patient had drug-coated balloon done 6 months ago, I proceeded with predilatation then deployment of Supera 5.5150 with excellent results. Popliteal artery has moderate to severe disease at the trifurcation. Treated conservatively. There is good flow down to the foot at this point, there is significant proximal disease at the anterior and posterior tibial artery. If patient became symptomatic or have nonhealing ulcer on consider intervention on these arteries. CONCLUSION: 1. Total occlusion of the right coronary artery receiving collaterals from the left system, did not change compared to baseline 2. 40-50 percent stenosis at the mid circumflex artery, did not change compared to previous study. 3. Severe restenosis in the right SFA, successful balloon angioplasty then deployment of Supera 5.5 time 150 with excellent results, distal SFA/popliteal artery has moderate severe disease at the trifurcation, moderate to severe disease at the proximal anterior tibial and posterior tibial with good flow down to the foot. Will be treated medically at this time, if patient did not improve with his symptoms or double up nonhealing ulcer I will consider intervention on his below the knee disease. 4. Moderate disease in the left SFA, good brisk flow down to the foot at the left side. DISCUSSION AND RECOMMENDATION: I will continue with maximizing medical therapy. Monitor the patient closely. If he become more symptomatic or developed nonhealing ulcer I'll consider intervention on the small vessel below the knee on the right side. Anesthesia Type: Conscious Sedation Estimated blood loss (mL): 5 ml Contrast Amount: 74 ml Total Radiation Dose: 1315 Post-Procedure Diagnosis Post-operative diagnosis: Peripheral arterial disease Coronary artery disease Hypertension Hyperlipidemia Diabetes mellitus LEIDY ARMIJO MD Mar 29, 2017 11:43
[2017-03-29] MEDS ORDERED: lisINopril 20 MG (ZESTRIL) TAB ONE (15:49)
[2017-03-29] MEDS: lisINopril 20 MG (ZESTRIL) TAB PO SCH (16:09)
[2017-03-29] MEDS ORDERED: PANTOPRAZOLE 40 MG (PROTONIX) TAB PO PRN (16:15)
[2017-03-29] MEDS: CARVEDILOL 12.5 MG (COREG) TABLET PO SCH (20:05)
[2017-03-29] MEDS ORDERED: NON-FORMULARY MEDICATION 1 EA EA (Carvedilol (Coreg) 25 MG) PO SCH (21:00)
[2017-03-29] MEDS ORDERED: SIMvastatin 40 MG (ZOCOR) TAB PO SCH (21:00)
[2017-03-30] VITALS: BP 148/60
[2017-03-30 04:00] VITALS: BP 167/68
[2017-03-30 05:59] LABS: MEAN PLATELET VOLUME 10.4 FL (7.4-10.4); RED BLOOD COUNT 4.01 10^6/uL (4.35-5.85); RED CELL DISTRIBUTION WIDTH 13.1 % (10.0-14.5); WHITE BLOOD COUNT 8.3 10^3/uL (4.3-11.0)
[2017-03-30 06:10] LABS: CALCIUM 8.9 MG/DL (8.5-10.1); CREATININE SERUM 1.24 MG/DL (0.60-1.30); POTASSIUM 4.2 MMOL/L (3.6-5.0)
[2017-03-30 08:00] VITALS: BP 161/79
--- NOTE | 2017-03-30 08:07 | Cardiology Progress Note ---
Subjective Date Seen by Provider: Mar 30, 2017 Time Seen by Provider: 08:05 Subjective/Events-last exam patient is feeling well, asking to go home, groin is healing well. Review of Systems General: No Chills, No Night Sweats, No Fatigue, No Malaise, No Appetite, No Other HEENT: No Head Aches, No Visual Changes, No Eye Pain, No Ear Pain, No Dysphasia , No Sinus Congestion, No Post Nasal Drip, No Sore Throat, No Other Pulmonary: No Dyspnea, No Cough, No Pleuritic Chest Pain, No Other Cardiovascular: No: Chest Pain, Palpitations, Orthopnea, Paroxysmal Noc. Dyspnea, Edema, Lt Headedness, Other Objective-Cardiology Exam Last Set of Vital Signs Vital Signs 03/30/17 03/30/17 04:00 07:00 Temp 97.2 Pulse 52 Resp 10 B/P (MAP) 167/68 Pulse Ox 96 O2 Delivery Room Air Capillary Refill : Less Than 3 Seconds I&O Intake and Output 03/31/17 00:00 Output Total 825 ml Balance -825 ml Output Urine Total 825 ml General: Alert, Oriented X3, Cooperative HEENT: Atraumatic, PERRLA Neck: Supple, No JVD, No Thyromegaly Lungs: Clear to Auscultation, Normal Air Movement Heart: Regular Rate, Normal S1, Normal S2, No Murmurs Abdomen: Normal Bowel Sounds, Soft, No Tenderness, No Hepatosplenomegaly, No Masses Extremities: No Clubbing, No Cyanosis, No Edema, Normal Pulses, No Tenderness/ Swelling Skin: No Rashes, No Breakdown, No Significant Lesion Neuro: Normal Gait, Normal Speech, Strength at 5/5 X4 Ext, Normal Tone, Sensation Intact Psych/Mental Status: Mental Status NL, Mood NL Results Lab Laboratory Tests 03/30/17 05:03 A/P-Cardiology Admission Diagnosis coronary artery disease Peripheral arterial disease Hypertension Hyperlipidemia Assessment/Plan Coronary artery disease status post cardiac catheterization showing chronic total occlusion of the right coronary artery with collateral from the left, moderate disease of the circumflex artery which would be treated medically. Peripheral arterial disease, claudication. Status post peripheral angiogram 1. Total occlusion of the right coronary artery receiving collaterals from the left system, did not change compared to baseline 2. 40-50 percent stenosis at the mid circumflex artery, did not change compared to previous study. 3. Severe restenosis in the right SFA, successful balloon angioplasty then deployment of Supera 5.5 time 150 with excellent results, distal SFA/popliteal artery has moderate severe disease at the trifurcation, moderate to severe disease at the proximal anterior tibial and posterior tibial with good flow down to the foot. Will be treated medically at this time, if patient did not improve with his symptoms or developed nonhealing ulcer I will consider intervention on his below the knee disease. 4. Moderate disease in the left SFA, good brisk flow down to the foot at the left side. Hypertension, restart home medication monitor blood pressure Hyperlipidemia, continue on statin Chronic renal insufficiency, renal function improved with aggressive fluid. Continue to monitor Diabetes mellitus. LEIDY ARMIJO MD Mar 30, 2017 08:07
--- NOTE | 2017-03-30 08:09 | Discharge Inst-Post CATH ---
Discharge Inst-CATH Post Cardiac Cath D/C Inst Follow Up/Plan Appointment with Dr. Eid's office in one to 2 weeks CARDIAC CATH DISCHARGE INSTRUCTIONS *Hold Metformin for 48 hours post heart cath. ACTIVITY * Go Home directly and rest. * Limit activity of the leg (or wrist if it was used) for 7 days including aerobics, swimming, jogging, bicycling, etc. * Restrict stair-climbing for 7 days if possible, if not, climb up with your non -cath leg, then bring together on the same step. * Avoid lifting, pushing, pulling or excessive movement of the affected extremity for 7 days. * Customary sexual activity may be resumed after 2 days-use caution not to use a position that strains or causes pain to the affected extremity. * No driving for 24 hours. * NO SMOKING. * Avoid straining for bowel movements for 7 days. * Gentle walking on level ground is allowed. * Returning to work will depend on the type of procedure and the results. Your doctor will discuss this with you. CALL YOUR DOCTOR FOR ANY OF THE FOLLOWING: *If bleeding from the puncture site occurs- Apply gentle pressure to site with clean cloth and call your doctor or EMS. * If a knot or lump forms under the skin, increases in size, or causes pain. * If bruising appears to be worsening or moving further down your leg instead of disappearing. * Temperature above 101 F. CARE OF YOUR GROIN INCISION; * Bruising or purple discoloration of the skin near the puncture site is common. * You may shower only, no bathtub bathing for 5 days. Be careful to avoid slipping as your leg may feel stiff. * If a closure device was used on your femoral artery, please see the attached guide regarding care of the device and your leg. * REMOVE the dressing from your groin the next day after your procedure in the shower. CARE OF YOUR WRIST INCISION; * Bruising or purple discoloration of the skin near the puncture site is common. * You may shower. * DO NOT submerge wrist. * Remove dressing in 24 hours. LEIDY EID MD Mar 30, 2017 08:09
[2017-03-30] MEDS ORDERED: NON-FORMULARY MEDICATION 1 EA EA (Lisinopril 40 MG) PO SCH (09:00)
[2017-03-30] MEDS: lisINopril 20 MG (ZESTRIL) TAB PO SCH (09:00)
[2017-03-30] MEDS ORDERED: NON-FORMULARY MEDICATION 1 EA EA (Omega-3/Dha/Epa/Fish Oil (Fish Oil 1,000 mg Softgel) 2,0 PO SCH (09:00)
[2017-03-30] MEDS ORDERED: ASPIRIN E.C. 81 MG (ECOTRIN) TAB PO SCH (09:00)
[2017-03-30] MEDS ORDERED: OMEGA 3 (FISH OIL) 1000 MG CAP PO SCH (09:00)
[2017-03-30] MEDS ORDERED: CLOPIDOGREL 75 MG (PLAVIX) TABLET PO SCH (09:00)
[2017-03-30] MEDS: CARVEDILOL 12.5 MG (COREG) TABLET PO SCH (09:00)
== END 2017-03-30 09:30 | disposition home or self-care (01) ==
LOC: CATH 06:50 → ICU 11:50 → CATH 03-30 09:30
PROVIDERS: ATTEND Internal Medicine Cardiovascular Disease
DX: I25.10 Atherosclerotic heart disease of native coronary artery without angina pectoris (principal); I70.213 Atherosclerosis of native arteries of extremities with intermittent claudication, bilateral legs; I25.82 Chronic total occlusion of coronary artery; I10 Essential (primary) hypertension; R07.89 Other chest pain; E11.9 Type 2 diabetes mellitus without complications; E78.5 Hyperlipidemia, unspecified; I50.22 Chronic systolic (congestive) heart failure; J44.9 Chronic obstructive pulmonary disease, unspecified; I71.4 Abdominal aortic aneurysm, without rupture; Z72.0 Tobacco use; Z79.899 Other long term (current) drug therapy; Z95.820 Peripheral vascular angioplasty status with implants and grafts; Z79.4 Long term (current) use of insulin
CPT/HCPCS: 36247; 36415; 37226; 71010; 75625; 75716; 75774; 80048; 80053; 80061; 81000; 85027; 85347; 85610; 85730; 87081; 93005; 93458

== ENCOUNTER → 2020-02-16 | Outpatient (CLI) | payer MEDICARE ==
[~2020-02-16] MED LIST changes: +AMLO5TAB9 PO; -CYAN500T2 PO; +CYAN500T62 PO; -HEParin (CATH LAB) 2,000 ML IV ONE; -NS IV 1000 ML 1,000 ML ONE; +RANI-613 PO; -RANI150T15 PO; +SIMV40TA25 PO; -SIMV40TA4 PO
[2020-02-16 09:59] LABS: ALBUMIN 3.8 GM/DL (3.2-4.5); BILIRUBIN,TOTAL 0.5 MG/DL (0.1-1.0); CALCIUM 10.1 MG/DL (8.5-10.1); CREATININE SERUM 1.61 MG/DL (0.60-1.30)
== END ==
LOC: CARD 09:19
PROVIDERS: ATTEND Physician Assistant
DX: I34.0 Nonrheumatic mitral (valve) insufficiency (principal); E78.2 Mixed hyperlipidemia; I11.0 Hypertensive heart disease with heart failure; I25.10 Atherosclerotic heart disease of native coronary artery without angina pectoris; E11.9 Type 2 diabetes mellitus without complications; I50.1 Left ventricular failure, unspecified; I77.1 Stricture of artery
CPT/HCPCS: 36415; 80053; 80061; 93306

== ENCOUNTER 2020-12-15 20:00 | Emergency (ER) | payer MEDICARE ==
[~2020-12-15] VITALS: Ht 177.8 cm; Wt 106.4 kg
[~2020-12-15 20:00] MED LIST changes: +AMLO-250 PO; -AMLO5TAB9 PO; +ASPI-1238 PO; -ASPI-983 PO; -CYAN500T62 PO; +CYAN500T8 PO; -LISI-552 PO; -LISI10TA2 PO; +LISI10TA25 PO; +LISI20TA26 PO; -LISI40TA PO; +LISI40TA9 PO
[2020-12-15 20:24] VITALS: BP_SYST 76
--- NOTE | 2020-12-15 20:30 | ED Cough/URI ---
General Chief Complaint: Respiratory Problems Stated Complaint: NOT EATING / COUGH / MUSCLE PAIN Nursing Triage Note: Patient reports being sick with SOA for 3 weeks. states that he can normally sit in front of the A/C and catch his breathe, but has not been able to do that today. does state that he has not had much of an appetitte. Sepsis Screen: No Definite Risk Source: patient Exam Limitations: no limitations History of Present Illness Date Seen by Provider: Dec 15, 2020 Time Seen by Provider: 20:30 Initial Comments 75-year-old male with reports of shortness of breath for 3 weeks. Normally he can sit in front of the air conditioner and catch his breath but he was unable to do that today. No fevers chills or chest pain. He does have extensive coronary artery disease. He has congestive heart failure and follows with Dr. Eid. He is on Lasix. He is an insulin-dependent diabetic. He smokes half pack of cigarettes per day. He does have breathing treatments at home via nebulizer but has not used them in 48 hours because he just has been very weak he states. Timing/Duration: constant Severity/Quality: moderate Associated Symptoms: cough, shortness of breath, wheezing Allergies and Home Medications Allergies Coded Allergies: No Known Drug Allergies (Unverified , 02/07/15) Home Medications Amlodipine Besylate 5 Mg Tablet, 5 MG PO DAILY, (Reported) Aspirin 81 Mg Tablet.dr, 81 MG PO DAILY, (Reported) Carvedilol 25 Mg Tab, 25 MG PO BID, (Reported) Clopidogrel Bisulfate 75 Mg Tablet, 75 MG PO DAILY Prescribed by: LEIDY EID on 09/10/16 0733 Cyanocobalamin (Vitamin B-12) 500 Mcg Tablet, 500 MCG PO DAILY, (Reported) Esomeprazole Magnesium 40 Mg Cap, 40 MG PO DAILY PRN for HEARTBURN, (Reported) Insulin Aspart 100 Unit/1 Ml Susp, 5-10 UNIT SQ TID, (Reported) Insulin Determir 1,000 Units/10 Ml Soln, 5 UNITS SQ DAILY, (Reported) Lisinopril 40 Mg Tablet, 40 MG PO DAILY, (Reported) Multivitamin with Minerals 1 Each Tablet, 1 TAB PO DAILY, (Reported) [place]-3/Dha/Epa/Fish Oil 1 Each Capsule, 2,000 MG PO DAILY, (Reported) TAKES 2 (1000MG) CAPSULES Simvastatin 40 Mg Tablet, 40 MG PO HS, (Reported) Patient Home Medication List Home Medication List Reviewed: Yes Review of Systems Review of Systems Constitutional: see HPI EENTM: see HPI Respiratory: see HPI, dyspnea on exertion Genitourinary: no symptoms reported Musculoskeletal: no symptoms reported Skin: no symptoms reported Psychiatric/Neurological: No Symptoms Reported Hematologic/Lymphatic: No Symptoms Reported Immunological/Allergic: no symptoms reported Past Zobehsu-Xrggzm-Celvnr Hx Patient Social History Alcohol Use: Denies Use Type Used: Cigarettes Recent Infectious Disease Expo: No Seasonal Allergies Seasonal Allergies: No Past Medical History Surgeries: No Respiratory: Yes Emphysema Cardiac: Yes Neurological: No Reproductive Disorders: No Sexually Transmitted Disease: No HIV/AIDS: No Gastrointestinal: Yes Gastroesophageal Reflux Musculoskeletal: No Endocrine: Yes Diabetes, Insulin dep Loss of Vision: Denies Cancer: No Family Medical History Heart Disease Physical Exam Vital Signs - First Documented 12/15/20 20:24 Temp 37.0 Pulse 67 Resp 30 B/P (MAP) 76/ Pulse Ox 98 O2 Flow Rate 168.00 Capillary Refill : Less Than 3 Seconds Height: 5'10.00" Weight: 211lbs. 0.0oz. 95.747506ut; 33.00 BMI Method: General Appearance: WD/WN, no apparent distress Eyes: Bilateral Eye Normal Inspection, Bilateral Eye PERRL, Bilateral Eye EOMI Neck: non-tender, full range of motion Respiratory: no accessory muscle use, accessory muscle use, wheezing Cardiovascular: regular rate, rhythm, no murmur Gastrointestinal: normal bowel sounds, non tender, soft Extremities: normal range of motion, non-tender, pedal edema (2+ BLE) Neurologic/Psychiatric: alert, normal mood/affect, oriented x 3 Skin: normal color, warm/dry Progress/Results/Core Measures Suspected Sepsis Recent Fever Within 48 Hours: No Infection Criteria Present: None New/Unexplained Altered Menta: No Sepsis Screen: No Definite Risk SIRS Temperature: Pulse: 67 Respiratory Rate: 30 Laboratory Tests 12/15/20 20:15: White Blood Count 8.7 Blood Pressure 76 / Mean: Laboratory Tests 12/15/20 20:15: Creatinine 1.88H, Platelet Count 206, Total Bilirubin 0.5 Results/Orders Lab Results Laboratory Tests Test 12/15/20 20:15 12/15/20 20:42 12/15/20 21:23 Range/Units White Blood Count 8.7 4.3-11.0 10^3/uL Red Blood Count 4.01 L 4.30-5.52 10^6/uL Hemoglobin 10.4 L 13.3-17.7 g/dL Hematocrit 35 L 40-54 % Mean Corpuscular Volume 87 80-99 fL Mean Corpuscular Hemoglobin 26 25-34 pg Mean Corpuscular Hemoglobin Concent 30 L 32-36 g/dL Red Cell Distribution Width 18.3 H 10.0-14.5 % Platelet Count 206 130-400 10^3/uL Mean Platelet Volume 9.8 9.0-12.2 fL Immature Granulocyte % (Auto) 0 % Neutrophils (%) (Auto) 79 H 42-75 % Lymphocytes (%) (Auto) 11 L 12-44 % Monocytes (%) (Auto) 8 0-12 % Eosinophils (%) (Auto) 1 0-10 % Basophils (%) (Auto) 1 0-10 % Neutrophils # (Auto) 6.8 1.8-7.8 10^3/uL Lymphocytes # (Auto) 0.9 L 1.0-4.0 10^3/uL Monocytes # (Auto) 0.7 0.0-1.0 10^3/uL Eosinophils # (Auto) 0.1 0.0-0.3 10^3/uL Basophils # (Auto) 0.1 0.0-0.1 10^3/uL Immature Granulocyte # (Auto) 0.0 0.0-0.1 10^3/uL Sodium Level 143 135-145 MMOL/L Potassium Level 4.4 3.6-5.0 MMOL/L Chloride Level 107 98-107 MMOL/L Carbon Dioxide Level 24 21-32 MMOL/L Anion Gap 12 5-14 MMOL/L Blood Urea Nitrogen 23 H 7-18 MG/DL Creatinine 1.88 H 0.60-1.30 MG/DL Estimat Glomerular Filtration Rate 35 BUN/Creatinine Ratio 12 Glucose Level 108 H 70-105 MG/DL Calcium Level 9.7 8.5-10.1 MG/DL Corrected Calcium 9.9 8.5-10.1 MG/DL Magnesium Level 2.1 1.6-2.4 MG/DL Total Bilirubin 0.5 0.1-1.0 MG/DL Aspartate Amino Transf (AST/SGOT) 19 5-34 U/L Alanine Aminotransferase (ALT/SGPT) 9 0-55 U/L Alkaline Phosphatase 74 40-136 U/L Troponin I 0.056 H <0.028 NG/ML B-Type Natriuretic Peptide 2472.8 H <100.0 PG/ML Total Protein 7.8 6.4-8.2 GM/DL Albumin 3.8 3.2-4.5 GM/DL Procalcitonin 0.03 <0.10 NG/ML Influenza Type A (RT-PCR) Not Detected Not Detecte Influenza Type B (RT-PCR) Not Detected Not Detecte SARS-CoV-2 RNA (RT-PCR) Not Detected Not Detecte Blood Gas Puncture Site RIGHT RADIAL Blood Gas Patient Temperature 37.0 Arterial Blood pH 7.39 7.37-7.43 Arterial Blood Partial Pressure CO2 42 35-45 MMHG Arterial Blood Partial Pressure O2 68 L 79-93 MMHG Arterial Blood HCO3 25 23-27 MMOL/L Arterial Blood Total CO2 26.1 21.0-31.0 MMOL/L Arterial Blood Oxygen Saturation 94 94-100 % Arterial Blood Base Excess 0.5 -2.5-2.5 MMOL/L Clif Test YES-POS Blood Gas Ventilator Setting NO Blood Gas Inspired Oxygen ROOM AIR My Orders Orders - ISMAEL MONAHAN [employer]EV[employer] BUSINESS ANALYST Cbc With Automated Diff (12/15/20 20:28) Comprehensive Metabolic Panel (12/15/20 20:28) BNP (12/15/20 20:28) Ekg Tracing (12/15/20 20:28) Covid 19 Inhouse Test (12/15/20 20:28) Influenza A And B By Pcr (12/15/20 20:28) Magnesium (12/15/20 20:28) Procalcitonin (Pct) (12/15/20 20:28) Chest 1 View, Ap/Pa Only (12/15/20 20:28) Troponin I (12/15/20 20:41) Furosemide Injection (Lasix Injection) (12/15/20 21:15) Arterial Blood Gas (12/15/20 21:23) Methylprednisolone Sod Succ (Solu-Medrol (12/15/20 21:45) Albuterol/Ipra Inhalation Soln (Duoneb I (12/15/20 21:45) Svn Small Volume Nebulizer (6/13/21 21:33) Medications Given in ED Current Medications Medications Dose Ordered Sig/Kimo Route Start Time Stop Time Status Last Admin Dose Admin Furosemide 40 mg ONCE ONCE IVP 12/15/20 21:15 12/15/20 21:16 DC 12/15/20 21:23 40 MG Vital Signs/I&O 12/15/20 20:24 Temp 37.0 Pulse 67 Resp 30 B/P (MAP) 76/ Pulse Ox 98 O2 Flow Rate 168.00 Capillary Refill : Less Than 3 Seconds Departure Communication (Admissions) Discussed with the patient recommendation for admission given his respiratory effort though he does look on paper. He states that he cannot stay, he has animals locked up at home that he is to go take care of. Impression Primary Impression: CHF exacerbation Additional Impression: COPD exacerbation Disposition: HOME, SELF-CARE Condition: Against Medical Advice Departure-Patient Inst. Decision time for Depature: 21:38 Referrals: JESSA MOFFETT MD (PCP/Family) Primary Care Physician Patient Instructions: CHF Add. Discharge Instructions: 1. Please note that you are leaving AGAINST MEDICAL ADVICE. Return to ER for any worsening. Steroids as directed. Double your Lasix dose for the next 3 days. All discharge instructions reviewed with patient and/or family. Voiced understanding. Scripts Prednisone (Prednisone) 20 Mg Tab 40 MG PO DAILY, #6 TAB 0 Refills Prov: ISMAEL MONAHAN APRN 12/15/20 Copy Copies To 1: JESSA MOFFETT MD, PETER J APRN Dec 15, 2020 20:30
[2020-12-15 20:34] LABS: BASOPHILS # (AUTO) 0.1 10^3/uL (0.0-0.1); BASOPHILS % (AUTO) 1 % (0-10); EOSINOPHILS # (AUTO) 0.1 10^3/uL (0.0-0.3); EOSINOPHILS % (AUTO) 1 % (0-10); HEMATOCRIT 35 % (40-54); HEMOGLOBIN 10.4 g/dL (13.3-17.7); LYMPHOCYTES # (AUTO) 0.9 10^3/uL (1.0-4.0); LYMPHOCYTES % (AUTO) 11 % (12-44); MEAN CORPUSCULAR HEMOGLOBIN 26 pg (25-34); MEAN CORPUSCULAR HGB CONC 30 g/dL (32-36); MEAN CORPUSCULAR VOLUME 87 fL (80-99); MEAN PLATELET VOLUME 9.8 fL (9.0-12.2); MONOCYTES # (AUTO) 0.7 10^3/uL (0.0-1.0); MONOCYTES % (AUTO) 8 % (0-12); NEUTROPHILS # (AUTO) 6.8 10^3/uL (1.8-7.8); NEUTROPHILS % (AUTO) 79 % (42-75); PLATELET COUNT 206 10^3/uL (130-400); WHITE BLOOD COUNT 8.7 10^3/uL (4.3-11.0)
[2020-12-15 20:36] LABS: ALBUMIN 3.8 GM/DL (3.2-4.5); POTASSIUM 4.4 MMOL/L (3.6-5.0)
[2020-12-15 20:37] LABS: CALCIUM 9.7 MG/DL (8.5-10.1)
[2020-12-15 20:39] LABS: TOTAL PROTEIN 7.8 GM/DL (6.4-8.2)
[2020-12-15 20:40] LABS: BILIRUBIN,TOTAL 0.5 MG/DL (0.1-1.0)
[2020-12-15 20:42] LABS: CREATININE SERUM 1.88 MG/DL (0.60-1.30)
[2020-12-15 20:45] LABS: MAGNESIUM 2.1 MG/DL (1.6-2.4)
[2020-12-15] MEDS ORDERED: FUROSEMIDE 40 MG/4 ML INJ (LASIX) IVP ONE (21:15)
[2020-12-15 21:27] LABS: ABG BASE EXCESS 0.5 MMOL/L (-2.5-2.5); ABG OXYGEN SATURATION 94 % (94-100); ABG PCO2 42 MMHG (35-45); ABG PH 7.39 (7.37-7.43); ABG PO2 68 MMHG (79-93); ABG TCO2 26.1 MMOL/L (21.0-31.0)
[2020-12-15 21:28] LABS: ALLENS TEST YES-POS; INSPIRED O2 ROOM AIR; VENTILATOR NO
[2020-12-15] MEDS ORDERED: PRD20T PO (21:39)
[2020-12-15] MEDS ORDERED: methylPREDNISolone 125 MG (Solu-MEDROL) VIAL IVP ONE (21:45)
[2020-12-15] MEDS ORDERED: RT-ALBUTEROL/IPRATROPIUM 3 ML (DUONEB) VIAL INH ONE (21:45)
--- NOTE | 2020-12-15 21:53 | Diagnostic Imaging Report ---
INDICATION: Shortness of air. FINDINGS: Frontal view of the chest is compared to an exam from 2017. Cardiomegaly is stable with development of mild pulmonary congestion. No pleural effusion is present. IMPRESSION: There is chronic cardiomegaly with development of mild pulmonary congestion. Dictated by: Dictated on workstation # [id number]
== END 2020-12-15 22:00 | disposition left against medical advice (07) ==
LOC: EDUNIT# 20:00 → ER 20:01
DX: I50.9 Heart failure, unspecified (principal); J44.1 Chronic obstructive pulmonary disease with (acute) exacerbation; K21.9 Gastro-esophageal reflux disease without esophagitis; E11.9 Type 2 diabetes mellitus without complications; I25.10 Atherosclerotic heart disease of native coronary artery without angina pectoris; F17.210 Nicotine dependence, cigarettes, uncomplicated; Z20.822 Contact with and (suspected) exposure to COVID-19; Z79.4 Long term (current) use of insulin; Z79.899 Other long term (current) drug therapy; Z79.82 Long term (current) use of aspirin
CPT/HCPCS: 36415; 71045; 80053; 82805; 83735; 83880; 84145; 84484; 85025; 87636; 93005

== ENCOUNTER → 2021-01-24 | Outpatient (CLI) | payer MEDICARE ==
[~2021-01-24] MED LIST changes: +PRD20T PO
== END ==
LOC: CARD 09:06
PROVIDERS: ATTEND Internal Medicine Cardiovascular Disease
DX: I25.10 Atherosclerotic heart disease of native coronary artery without angina pectoris (principal); I08.1 Rheumatic disorders of both mitral and tricuspid valves
CPT/HCPCS: 87635; 93306

== ENCOUNTER → 2021-01-27 | Outpatient (CLI) | payer MEDICARE | LOC: LABNPT 08:07 | PROVIDERS: ATTEND Thoracic Surgery (Cardiothoracic Vascular Surgery) | DX: Z01.812 Encounter for preprocedural laboratory examination (principal); Z20.822 Contact with and (suspected) exposure to COVID-19 | CPT/HCPCS: 87635 ==